=== PATIENT | male | born 1970 | race Caucasian/White ===

== ENCOUNTER 2016-07-25 20:36 | Emergency (ER) | payer MEDICARE ==
[~2016-07-25] VITALS: Ht 182.9 cm; Wt 90.9 kg
[~2016-07-25 20:36] MED LIST: DEXT20TA8 PO; ESCI20TA38 PO; LISI1TAB11 PO; LORA1TAB PO; ONDA4TAB6 PO; OXYC1TAB91 PO; OXYC20TA55 PO
[2016-07-25 20:50] VITALS: BP 132/90; PULSE 100; RESP 16; O2SAT 98
--- NOTE | 2016-07-25 21:02 | ED.REPORT ---
HPI-Psychiatric Illness Date of Service Jul 25, 2016 ED Provider: Lorenzo Mo DO A 46 year old male with a history of bipolar disorder, distant seizures and possible underlying schizophrenia is brought to the ED by his mother due to paranoid and abnormal behavior. Per pt's , the pt woke up one week ago and was not speaking clearly. He was also experiencing auditory and visual hallucinations. These symptoms persisted and have worsened. He has been diagnosed with bipolar disorder previously and was intermittently taking lamotrigine and Ativan, but his doctors have changed these medications repeatedly. When the pt arrived in the ED he began threatening staff and security guards, stating that the "leprechauns were making him do it" and he "had the devil in him." He was also making threatening comments to family at this point and became combative when brought into the room. The pt denies drug use. Nursing Notes Stated Complaint: MENTAL TRAUMA Chief Complaint: Psychiatric Complaint Nursing Notes Reviewed: Yes Allergies: Coded Allergies: No Known Allergies (Unverified , 07/25/16) Scheduled Dextroamphetamine/Amphetamine (Amphetamine Mixed Salts) 20 Mg Tablet 20 MG PO TID Escitalopram Oxalate (Escitalopram Oxalate) 20 Mg Tablet 20 MG PO DAILY Lisinopril / HCTZ 20-25 mg (Lisinopril / HCTZ 20-25 mg) 1 Each Tablet 1 TAB PO DAILY Lorazepam (Lorazepam) 1 Mg Tablet 4 MG PO QID Oxycodone ER (Oxycontin) 20 Mg Tab.er.12h 40 MG PO BID Scheduled PRN Ondansetron (Zofran) 4 Mg Tablet 4 MG PO Q4H PRN PRN For Nausea Oxycodone HCl/Acetaminophen (Endocet 10-325 mg Tablet) 1 Each Tablet 2 TAB PO TID PRN PRN For Pain General Time Seen by MD: 21:01 Chief Complaint Paranoid Hx Obtained From: Patient, Spouse, EMS Arrived By: Ambulance Onset Occurred: 1 week ago Symptom Duration: Since onset Recent Healthcare: No recent doctor visit, No recent hospitalization Similar Sx Previous: Yes Risk-Psychiatric Illness Suicide Risk Stratification Suicide Risk Factors - Adult: No: Prior psych admission, Substance abuse RF Statements: Risk factors reviewed Past Medical History Past Medical History bipolar disorder distant seizures (1980s) underlying schizophrenia per Reports: Hypertension Past Surgical History none reported Smoking History Former Smoker Social History Alcohol Use: Denies alcohol use Drug Use: Denies drug use Other Social History: Good social support, Ambulatory Status Independent Review of Systems Unable to Obtain ROS Mental status Physical Exam Initial Vital Signs Vital Signs (First) Date Time Temp Pulse Resp B/P Pulse Ox O2 Delivery O2 Flow Rate FiO2 07/25/16 20:50 36.0 100 16 132/90 98 Room Air Initial VS: Reviewed General/Constitutional: Awake, Alert Neurologic: Oriented X3, Speech NL, No motor deficits, No sensory deficits Psychiatric: Not suicidal aggressive and combative paranoid delusional thoughts Head / Eyes: Atraumatic, Normocephalic, PERRL, EOMI ENT: Atraumatic, Airway patent, Mucous membranes moist Respiratory / Chest: Atraumatic, Breath sounds NL, Breath sounds = bilat, No respiratory distress Cardiovascular: Heart rate NL, Regular rhythm, Heart sounds NL Abdomen: Atraumatic, Soft, Non-tender Skin: Atraumatic, Color NL, No rash, Warm, Dry Neck: Atraumatic, Supple, Full range of motion Back: Atraumatic, Full range of motion Upper Extremity / MS: Atraumatic, Full range of motion Lower Extremity / Pelvis / MS: Atraumatic, Full range of motion Interpretation & Diagnostics Lab Results Interpretation Result Diagram: 07/25/16 2145 07/25/16 214 Test 07/25/16 21:45 07/25/16 22:03 White Blood Count 7.3th/mm3 (3.8-10.1) Red Blood Count 4.49mil/mm3 (4.40-5.80) Hemoglobin 13.4g/dL (13.8-17.2) Hematocrit 38.1% (41.0-50.0) Mean Corpuscular Volume 84.9fL (81-100) Mean Corpuscular Hemoglobin 29.8pg (27.0-35.0) Mean Corpuscular Hemoglobin Concent 35.2% (32.0-37.0) Red Cell Distribution Width 13.2% (12.3-15.4) Platelet Count 309bil/L (150-400) Neutrophils (%) (Auto) 69.4% (40-74) Lymphocytes (%) (Auto) 21.0% (14-46) Monocytes (%) (Auto) 6.7% (4-12) Eosinophils (%) (Auto) 1.9% (0-5) Basophils (%) (Auto) 0.7% (0-3) Sodium Level 138mEq/L (134-144) Potassium Level 3.2mEq/L (3.5-5.2) Chloride Level 102mEq/L (97-108) Carbon Dioxide Level 21mmol/L (18-29) Blood Urea Nitrogen 12mg/dL (6-24) Creatinine 0.82mg/dL (0.76-1.27) Estimat Glomerular Filtration Rate 107mL/min (>59) Glucose Level 117mg/dL (60-99) Calcium Level 9.2mg/dL (8.5-10.1) Total Bilirubin 0.5mg/dL (0.0-1.2) Aspartate Amino Transf (AST/SGOT) 28U/L (0-50) Alanine Aminotransferase (ALT/SGPT) 27U/L (0-44) Alkaline Phosphatase 72U/L (25-150) Total Protein 6.6g/dL (6.4-8.4) Albumin 4.7g/dL (3.4-5.0) Thyroid Stimulating Hormone (TSH) 1.130uIU/mL (0.450-4.500) Alcohols < 10mg/dL (0-10) Hold Hess Top Tube Received (Received) Pulse Oximetry Interpretation Pulse Oximetry Interpretation: 98% on room air Pulse Oximetry: Pulse Ox normal X-Ray Interpretation Xray Interpretation: no acute findings X-Ray Ordered: Elbow right Interpretation / Wet Read by: Wet read ED physician CT Head Interpretation IMPRESSION: No acute intracranial disease process. Dictated by: Juliann Kauffman MD, PhD on 07/25/2016 at 21:59 Approved by: Juliann Kauffman MD, PhD on 07/25/2016 at 22:01 Interpretation / Wet Read by: Interpret - Radiologist Re-Eval/Medical Decision Med Decision/Clinical Course 46-year-old male with history of mental illness presents via family members with acute agitation and auditory and visual hallucinations. As he was being escorted back to a room he became hostile and combative. When I got involved in the case he was already placed in 3 or 4 point restraints. I was able to talk to him and convinced him to let us put him in restraints. He then agreed to be medicated. He was given Benadryl, Haldol and Ativan. He immediately calmed down and were able to get a moderate restraints. Currently he is resting comfortably. He is a bit somnolent and at this time we cannot make an accurate psychiatric evaluation. I do not feel that it is safe for him to be discharged home. He will remain in the ED under close observation until a mental health evaluation can be performed. We did CT his brain which is normal. Laboratory work is reassuring. Care signed out to Dr. Mina at the conclusion of my shift. Source of Hx: Old records Re-Evaluation/Progress #1: Time of Eval: 20:58 Re-Evaluation/Progress Note: Pt has become threatening and combative. He is placed in restraints following evaluation. Re-Evaluation/Progress #2: Time of Eval: 22:50 Re-Evaluation/Progress Note: Pt rechecked, who is no longer restrained. He is somnolent and vital signs are stable. Counseled Regarding: Diagnosis, Lab results Discharge & Departure Shift Change Sign-Out Patient Care Transferred: Yes Discussed Complaint(s): Yes Laboratory Evaluation: Lab evaluation discussed Imaging Studies: Imaging discussed Impression: Primary Impression: Acute psychosis Discharge Condition All VS Reviewed: Yes Condition: Stable Referrals: Leeal Lopez MD (PCP) Care Transferred to: Dr. Mina Care Transferred at: 03:00 Baldo Attestation Portions of this note were transcribed by Storm Card. I, Dr. Mo personally performed the history, physical exam and medical decision-making; I reviewed and confirmed the accuracy of the information in the transcribed note. Signed by: Baldo Rosales, 07/25/16 and [id number]. copies to: Leela Lopez MD, Todd P DO Jul 25, 2016 21:01 STORM CARD Jul 25, 2016 21:59
[2016-07-25] MEDS ORDERED: Haloperidol 5 mg/mL Inj IM PRN (21:05)
--- NOTE | 2016-07-25 22:03 | DRSVH ---
PROCEDURE: CT BRAIN WITHOUT CONTRAST ([id number]) INDICATIONS: altered mental status TECHNIQUE: Noncontrast 4.5 mm thick angled axial sections acquired from the foramen magnum to the vertex, with c oronal reformats. COMPARISON: [facility], CT, BRAIN W/O CONTRAST, 12/29/2010, 13:30. FINDINGS: Image quality: Excellent. CSF spaces: Basal cisterns are patent. No extra-axial fluid collections. Ventricles are normal in size and shape. Brain: No midline shift. No intracranial masses or hemorrhage. [place]-white matter interface is norm al. Skull and face: Calvarium and visualized facial bones are intact, without suspicious lesions. Sinuses: Visualized sinuses and mastoids are clear. IMPRESSION: No acute intracranial disease process. Dictated by: Juliann Kauffman MD, PhD on 07/25/2016 at 21:59 Approved by: Juliann Kauffman MD, PhD on 07/25/2016 at 22:01
[2016-07-25 22:14] LABS: BASOPHILS % (AUTO) 0.7 % (0-3); EOSINOPHILS % (AUTO) 1.9 % (0-5); MONOCYTES % (AUTO) 6.7 % (4-12); Mean Corpuscular Hemoglobin 29.8 pg (27.0-35.0); Mean Corpuscular Volume 84.9 fL (81-100); NEUTROPHILS % (AUTO) 69.4 % (40-74); Platelet Count 309 bil/L (150-400)
[2016-07-26 00:20] VITALS: BP 96/62; PULSE 73; RESP 17; O2SAT 98
[2016-07-26 04:20] VITALS: BP 112/71; PULSE 86; RESP 19; O2SAT 98
[2016-07-26] MEDS ORDERED: LORazepam 1 mg Tablet PO ONE (07:40)
[2016-07-26 07:55] VITALS: BP 130/80; PULSE 101; RESP 20
--- NOTE | 2016-07-26 10:56 | DRSVH ---
PROCEDURE: X-RAY RIGHT ELBOW COMPLETE, MINIMUM THREE VIEWS ([id number]) INDICATIONS: pain, trauma TECHNIQUE: 4 views of the elbow were acquired. COMPARISON: None. FINDINGS: Bones: No fractures or dislocations. No suspicious bony lesions. Soft tissues: No elbow joint effusion. No suspicious soft tissue calcifications. IMPRESSION: No trauma found. No joint effusion identified. Dictated by: Chino Calles M.D. on 07/26/2016 at 10:54 Approved by: Chino Calles M.D. on 07/26/2016 at 10:55
== END 2016-07-26 10:15 | disposition home or self-care (01) ==
LOC: SED 20:36
DX: F23 Brief psychotic disorder (principal); R41.82 Altered mental status, unspecified; I10 Essential (primary) hypertension; F20.9 Schizophrenia, unspecified; F31.9 Bipolar disorder, unspecified; Z87.891 Personal history of nicotine dependence
CPT/HCPCS: 36415; 70450; 73080; 80053; 81002; 82075; 84443; 85025; 96372; 99285; G0480; J1200; J1630; J2060